=== PATIENT | male | born 1995 | race Two or more races ===

== ENCOUNTER 2020-09-21 05:09 | Emergency (ER) | payer OTHER, MEDICAID ==
[~2020-09-21] VITALS: Ht 190.5 cm; Wt 122.7 kg
[2020-09-21] MEDS ORDERED: levETIRAcetam 500 MG TABLET PO ONE (05:30)
--- NOTE | 2020-09-21 05:34 | PHYS DOC ---
General Adult EDM: Chief Complaint: SEIZURE HPI: HPI: 25-year-old male presents with seizure at home. Patient has a known seizure disorder which he calls nocturnal seizure. The patient's pattern is typically that he drinks alcohol and then will have a seizure early in the morning about a day and a half later. Did go to a day before yesterday and drank some alcohol. He has not had a seizure in a year. He is on Keppra daily and he has been taking his medicine as prescribed. He denies any fall or injury. He has no other complaints at this time. Denies fever or chills. Review of Systems: Review of Systems: Constitutional: Denies fever or chills Eyes: Denies change in visual acuity HENT: Denies nasal congestion or sore throat Respiratory: Denies cough or shortness of breath Cardiovascular: Denies chest pain or edema GI: Denies abdominal pain, nausea, vomiting, bloody stools or diarrhea : Denies dysuria Musculoskeletal: Denies back pain or joint pain Integument: Denies rash Neurologic: Seizure denies headache, focal weakness or sensory changes Endocrine: Denies polyuria or polydipsia Lymphatic: Denies swollen glands Psychiatric: Denies depression or anxiety Allergies: Allergies: Allergies Coded Allergies Type Severity Reaction Last Updated Verified No Known Drug Allergies 09/21/20 No Physical Exam: PE: Constitutional: Well developed, well nourished, no acute distress, non-toxic appearance. [] HENT: Normocephalic, atraumatic, bilateral external ears normal, oropharynx moist, no oral exudates, nose normal. [] Eyes: PERRLA, EOMI, conjunctiva normal, no discharge. [] Neck: Normal range of motion, no tenderness, supple, no stridor. [] Cardiovascular: Heart rate regular rhythm, no murmur [] Lungs & Thorax: Bilateral breath sounds clear to auscultation [] Abdomen: Bowel sounds normal, soft, no tenderness, no masses, no pulsatile masses. [] Skin: Warm, dry, no erythema, no rash. [] Back: No tenderness, no CVA tenderness. [] Extremities: No tenderness, no cyanosis, no clubbing, ROM intact, no edema. [] Neurologic: Alert and oriented X 3, normal motor function, normal sensory function, no focal deficits noted. [] Psychologic: Affect normal, judgement normal, mood normal. [] EKG: EKG: Sinus tachycardia, rate 104, normal axis, no ST elevations or depressions. [] Radiology/Procedures: Radiology/Procedures: [] Impressions: CHEST AP ONLY Clinical History: Reason: seizure / Spl. Instructions: / History: Technique: AP view of the chest was obtained at 09/21/2020 5:12 AM. Comparison: None. Findings: The cardiomediastinal silhouette is normal. The pulmonary vasculature is normal. There is linear opacities in the lung bases left more than right. Impression: Mild basal infiltrates likely discoid atelectasis. Electronically signed by: Zeenat Clark III, MD (09/21/2020 5:35 AM) [facility] DICTATED AND SIGNED BY: ZEENAT CLARK III, MD DATE: 09/21/2035 CC: MONIKA SMART DO ~ Heart Score: Risk Factors: Risk Factors: DM, Current or recent (<one month) smoker, HTN, HLP, family history of CAD, obesity. Risk Scores: Score 0 - 3: 2.5% MACE over next 6 weeks - Discharge Home Score 4 - 6: 20.3% MACE over next 6 weeks - Admit for Clinical Observation Score 7 - 10: 72.7% MACE over next 6 weeks - Early Invasive Strategies Course & Med Decision Making: Course & Med Decision Making Pertinent Labs and Imaging studies reviewed. (See chart for details) The patient's seizures appear to be in line with his previous seizures. His l abs are unremarkable. His work-up is unremarkable. We will give the patient a boost of 500 mg of Keppra p.o. He is stable for discharge at this time. [] Dragon Disclaimer: Dragon Disclaimer: This electronic medical record was generated, in whole or in part, using a voice recognition dictation system. Departure Departure: Impression: Primary Impression: Breakthrough seizure Disposition: 01 DC HOME SELF CARE/HOMELESS Condition: STABLE Patient Instructions: Seizure, Adult, [id number] MONIKA SMART DO Sep 21, 2020 05:34
--- NOTE | 2020-09-21 05:37 | RAD ---
CHEST AP ONLY Clinical History: Reason: seizure / Spl. Instructions: / History: Technique: AP view of the chest was obtained at 09/21/2020 5:12 AM. Comparison: None. Findings: The cardiomediastinal silhouette is normal. The pulmonary vasculature is normal. There is linear opacities in the lung bases left more than right. Impression: Mild basal infiltrates likely discoid atelectasis. Electronically signed by: Jayson Clark III, MD (09/21/2020 5:35 AM) [facility]
[2020-09-21 05:40] LABS: BASO % 1 % (0-3); EOS # 0.2 x10^3/uL (0.0-0.7); EOS % 4 % (0-3); HEMATOCRIT 45.7 % (39.0-53.0); HEMOGLOBIN 15.4 g/dL (13.0-17.5); LYMPH # 1.8 x10^3/uL (1.0-4.8); LYMPH % 30 % (24-48); MEAN CORPUSCULAR HEMOGLOBIN 31 pg (25-35); MEAN CORPUSCULAR HGB CONC 34 g/dL (31-37); MEAN CORPUSCULAR VOLUME 92 fL (79-100); MONO # 0.5 x10^3/uL (0.0-1.1); MONO % 9 % (0-9); NEUT # 3.4 x10^3uL (1.8-7.7); NEUT % 57 % (31-73); PLATELET COUNT 227 x10^3/uL (140-400); RED BLOOD COUNT 4.97 x10^6/uL (4.30-5.70); RED CELL DISTRIBUTION WIDTH 12.8 % (11.5-14.5); WHITE BLOOD COUNT 5.9 x10^3/uL (4.0-11.0)
[2020-09-21 05:50] VITALS: BP 141/110
[2020-09-21 05:51] LABS: CREATININE 1.2 mg/dL (0.7-1.3); GFR 74.4; POTASSIUM 3.9 mmol/L (3.5-5.1)
[2020-09-21 05:58] LABS: ALBUMIN 3.8 g/dL (3.4-5.0); ALBUMIN/GLOBULIN RATIO 1.1 (1.0-1.7); TOTAL BILIRUBIN 0.3 mg/dL (0.2-1.0); TOTAL PROTEIN 7.3 g/dL (6.4-8.2)
[2020-09-21] MEDS ORDERED: IV NORMAL SALINE 1,000ML 1,000 ML IV ONE (06:00)
--- NOTE | 2020-09-21 06:07 | EKG ---
[address] [address] Test Date: 2020-09-21 Test Time: 05:36:30 Pat Name: YOVANNY HAYNES Department: Room: Gender: M [employer]: KEITH : 1995 Requested By: MONIKA SMART Order Number: [id number] Reading MD: Measurements Intervals [place] Rate: 104 P: 24 MN: 140 QRS: 10 QRSD: 84 T: 166 QT: 330 QTc: 434 Interpretive Statements SINUS TACHYCARDIA R-S TRANSITION ZONE IN V LEADS DISPLACED TO THE RIGHT T ABNORMALITY IN LATERAL LEADS INFERIOR LEADS ABNORMAL ECG RI6.02 No previous ECG available for comparison
[2020-09-21 06:12] LABS: AMPHETAMINE/METHAMPHETAMINE NEG (NEG); BARBITURATES NEG (NEG); BENZODIAZEPINES NEG (NEG); CANNABINOIDS NEG (NEG); COCAINE NEG (NEG); METHADONE NEG (NEG); OPIATES NEG (NEG); PHENCYCLIDINE NEG (NEG)
[2020-09-21 06:25] LABS: BACTERIA,URINE 0 /HPF (0-FEW); BILIRUBIN,URINE NEG (NEG); CLARITY,URINE CLEAR; COLOR,URINE YELLOW; GLUCOSE,URINE NEG (NEG); GRANULAR CASTS,URINE OCC /HPF; HYALINE CASTS, URINE FEW /HPF; NITRITE,URINE NEG (NEG); SQUAMOUS EPITHELIAL CELL,UR OCC /LPF; UROBILINOGEN,URINE 0.2 mg/dL (0.2 mg/dL)
== END 2020-09-21 06:07 | disposition home or self-care (01) ==
LOC: ER 05:09
DX: G40.909 Epilepsy, unspecified, not intractable, without status epilepticus (principal)
CPT/HCPCS: 36415; 71045; 80053; 80307; 81001; 84484; 85025; 93005; 99284

== ENCOUNTER → 2021-02-15 | Outpatient (CLI) | payer OTHER ==
--- NOTE | 2021-02-15 14:03 | RAD ---
XR FOOT_RIGHT 3 VIEWS DATE: 02/15/2021 12:05 PM INDICATION: FOOT PAIN, ROLLED FOOT February / Spl. Instructions: / History: COMPARISON: None. FINDINGS: Bones: There is no evidence of acute fracture or dislocation. Joints: The joint spaces are normal. Miscellaneous: None. IMPRESSION: No evidence of acute fracture. Electronically signed by: Pablo Khan MD (02/15/2021 2:00 PM) [id number]
== END ==
LOC: DXRAD 11:54
PROVIDERS: ATTEND Nurse Practitioner Family
DX: M79.671 Pain in right foot (principal)
CPT/HCPCS: 73630